=== PATIENT | male | born 1955 | race Caucasian/White ===

== ENCOUNTER 2019-11-17 20:30 | Inpatient (IN) | payer MEDICARE, OTHER ==
[2019-11-17] MEDS ORDERED: Sodium Chloride 0.9% 10 ML Syringe FLUSH PRN (20:32)
[2019-11-17] MEDS ORDERED: Albuterol 0.083% 2.5 MG/3 ML Neb Soln NEB ONE (20:43)
--- NOTE | 2019-11-17 20:43 | EDM.PDOC ---
ED HPI GENERAL MEDICAL PROBLEM - General Chief Complaint: General Stated Complaint: SOB Time Seen by Provider: 11/17/19 20:31 Source of Information: Reports: Patient History Limitations: Reports: No Limitations - History of Present Illness INITIAL COMMENTS - FREE TEXT/NARRATIVE: She comes into the emergency department after receiving a phone call from his primary care provider stating that he had an elevated troponin he was to present to the emergency department for further evaluation. Patient was seen in the clinic earlier today for increasing shortness of breath that has been going on now approximately 5 days. The patient states when it gets humid and hot he ends up having more difficulty breathing. Patient has a longstanding history of PD and use of at home oxygen. He states that he has been more short of breath at rest over the course of the week. He ended up going in the clinic earlier in the week and they provided him a prednisone taper dose and doxycycline. Patient came back into the clinic today for ongoing shortness of breath and needing to use his albuterol inhaler every 4 hours at home. He was given a Solu-Medrol action as well as obtained labs chest x-ray and EKG. EKG and x-ray reported as normal however patient's troponin came back elevated 0.133. Patient denies any recent exposure to COVID-19 or other symptoms. Patient states he is been relatively healthy and has been avoiding crowds for he is a high risk individual. Denies any active chest pain at rest, dizziness, lightheadedness, fever, chills, gastrointestinal concerns, or peripheral edema. His prior to arrival tonight he was at home eating 3 pieces of pizza and did consume 3 beers as the symptoms tonight have not progressed any worse he was evaluated in the clinic earlier today. Also endorses smoking a half a pack of cigarettes day for as long as he can remember. Onset: Gradual Location: Reports: Chest Quality: Reports: Other Severity: Mild Improves with: Reports: None Worsens with: Reports: None Associated Symptoms: Reports: No Other Symptoms - Related Data Allergies Allergy/AdvReac Type Severity Reaction Status Date / Time albuterol [From Combivent] Allergy Difficulty Verified 11/17/19 21:05 Breathing budesonide [From Pulmicort] Allergy Difficulty Verified 11/17/19 21:05 Breathing formoterol [From Symbicort] Allergy Difficulty Verified 11/17/19 21:05 Breathing ipratropium Allergy Difficulty Verified 11/17/19 21:05 Breathing tiotropium Allergy Difficulty Verified 11/17/19 21:05 [From Spiriva with Breathing HandiHaler] Home Meds: Home Meds Albuterol Sulfate 2.5 mg IH Q6H PRN 11/17/19 [History] Albuterol [Proair HFA] 2 puff INH Q4HR PRN 11/17/19 [History] Aspirin 81 mg PO DAILY 11/17/19 [History] Cholecalciferol (Vitamin D3) [Vitamin D3] 1,000 unit PO DAILY 11/17/19 [History] Doxycycline [Doxycycline Hyclate] 100 mg PO BID 11/17/19 [History] Fluticasone Propion/Salmeterol [Fluticasone-Salmeterol 250-50] 1 puff IH Q12H 11/17/19 [History] Fluticasone Propionate [Flonase] 2 spray NASBOTH DAILY 11/17/19 [History] Fluticasone/Salmeterol [Advair 250-50] 1 puff INH BID 11/17/19 [History] Folic Acid/Vit B Complex and C [Super B-Complex Folic-Vit C Tb] 400 mcg PO DAILY 11/17/19 [History] Loratadine [Claritin] 10 mg PO DAILY 11/17/19 [History] Mometasone/Formoterol [Dulera 200 Mcg/5 Mcg Inhaler] 2 puff IH BID 11/17/19 [History] Multivitamin [Multivitamins] 1 each PO DAILY 11/17/19 [History] ED ROS GENERAL - Review of Systems Review Of Systems: Comprehensive ROS is negative, except as noted in HPI. Constitutional: Reports: No Symptoms HEENT: Reports: No Symptoms Respiratory: Reports: Shortness of Breath, Wheezing. Denies: Cough Cardiovascular: Reports: No Symptoms Endocrine: Reports: No Symptoms GI/Abdominal: Reports: No Symptoms : Reports: No Symptoms Musculoskeletal: Reports: No Symptoms Skin: Reports: No Symptoms Neurological: Reports: No Symptoms Psychiatric: Reports: No Symptoms Hematologic/Lymphatic: Reports: No Symptoms ED EXAM, GENERAL - Physical Exam Exam: See Below Exam Limited By: No Limitations General Appearance: Alert, WD/WN, No Apparent Distress Eye Exam: Bilateral Eye: PERRL Head: Atraumatic, Normocephalic Neck: Normal Inspection, Supple, Non-Tender, Full Range of Motion Respiratory/Chest: Respiratory Distress, Decreased Breath Sounds, Wheezing, Retractions Course - Vital Signs Last Recorded V/S: Last Vital Signs Temp 36.6 C 11/17/19 20:35 Pulse 112 H 11/17/19 20:50 Resp 20 11/17/19 20:50 BP 129/79 11/17/19 20:50 Pulse Ox 97 11/17/19 20:50 - Orders/Labs/Meds Orders: Active Orders 24 hr Category Date Time Status Admission Status [Patient Status] [ADT] Routine ADT 11/17/19 21:44 Ordered EKG Documentation Completion [RC] STAT Care 11/17/19 20:31 Active RT Aerosol Therapy [RC] ASDIRECTED Care 11/17/19 20:43 Active Chest 1V Frontal [CR] Stat Exams 11/17/19 20:32 Taken Sodium Chloride 0.9% [Saline Flush] Med 11/17/19 20:32 Active 10 ml FLUSH ASDIRECTED PRN Peripheral IV Insertion Adult [OM.PC] Stat Oth 11/17/19 20:31 Ordered Medication Orders Sodium Chloride (Saline Flush) 10 ml FLUSH ASDIRECTED PRN PRN Reason: Keep Vein Open Labs: Laboratory Tests 11/17/19 11/17/19 Range/Units 20:50 20:50 WBC 8.5 (4.0-10.0) x10^3/uL RBC 5.33 (4.5-6.0) x10^6/uL Hgb 15.8 (14.0-18.0) g/dL Hct 46.2 (40.0-52.0) % MCV 86.7 (78.0-93.0) fL MCH 29.6 (26.0-32.0) pg MCHC 34.2 (32.0-36.0) g/dL RDW Coeff of Allen 13.2 (10.0-15.0) % Plt Count 267 (130-400) x10^3/uL Neut % (Auto) 88.9 H (50.0-80.0) % Lymph % (Auto) 8.5 L (25.0-50.0) % [place] % (Auto) 2.6 (2.0-11.0) % Eos % (Auto) 0.0 (0.0-4.0) % Baso % (Auto) 0.0 L (0.2-1.2) % Sodium 140 (136-145) mmol/L Potassium 3.9 (3.5-5.1) mmol/L Chloride 99 (98-107) mmol/L Carbon Dioxide 26 (21-32) mmol/L Anion Gap 18.9 (10-20) mmol/L BUN 16 (7-18) mg/dL Creatinine 1.0 (0.70-1.30) mg/dL Est Cr Clr Drug Dosing 75.03 mL/min Estimated GFR (MDRD) > 60 Glucose 240 H (74-106) mg/dL Calcium 9.1 (8.5-10.1) mg/dL Corrected Calcium 9.18 (8.5-10.1) mg/dL Total Bilirubin 0.3 (0.2-1.0) mg/dL AST 71 H (15-37) U/L ALT 55 (16-63) U/L Alkaline Phosphatase 82 (46-116) U/L Creatine Kinase 109 (39-308) U/L Troponin I 0.048 (<=0.056) ng/mL NT-Pro-B Natriuret Pep 188 H (<=125) pg/mL Total Protein 7.3 (6.4-8.2) g/dL Albumin 3.9 (3.4-5.0) g/dL Globulin 3.4 Albumin/Globulin Ratio 1.15 Meds: Medications Generic Name Dose Route Start Last Admin Trade Name Freq PRN Reason Stop Dose Admin Sodium Chloride 10 ml 11/17/19 20:32 Saline Flush FLUSH ASDIRECTED PRN Keep Vein Open Discontinued Medications Generic Name Dose Route Start Last Admin Trade Name Freq PRN Reason Stop Dose Admin Albuterol 2.5 mg 11/17/19 20:43 11/17/19 20:57 Proventil Neb Soln NEB 11/17/19 20:44 2.5 mg ONETIME ONE Administration Ceftriaxone Sodium 1 gm 11/17/19 21:44 Rocephin IVPUSH 11/17/19 21:45 ONETIME ONE - Re-Assessments/Exams Free Text/Narrative Re-Assessment/Exam: 11/17/19 21:50 pt states he feels better after the albuterol treatment. But still does get SOB with activity. Departure - Departure Time of Disposition: 21:50 Disposition: Admitted As Inpatient 64 Condition: Fair Clinical Impression: COPD with exacerbation, SOB (shortness of breath) Pneumonia Qualifiers: Pneumonia type: due to unspecified organism Laterality: bilateral Lung location: lower lobe of lung Qualified Code(s): J18.9 - Pneumonia, unspecified organism - Discharge Information *PRESCRIPTION DRUG MONITORING PROGRAM REVIEWED*: Not Applicable *COPY OF PRESCRIPTION DRUG MONITORING REPORT IN PATIENT STEPHANIE: Not Applicable Referrals: Fany Tomas NP [Primary Care Provider] - Forms: ED Department Discharge Sepsis Event Note (ED) - Focused Exam Vital Signs: Vital Signs Temp Pulse Resp BP Pulse Ox 11/17/19 20:50 112 H 20 129/79 97 11/17/19 20:35 36.6 C 128 H 32 H 137/91 H 91 L - My Orders Last 24 Hours: My Active Orders 11/17/19 20:31 EKG Documentation Completion [RC] STAT Peripheral IV Insertion Adult [OM.PC] Stat 11/17/19 20:32 Chest 1V Frontal [CR] Stat Sodium Chloride 0.9% [Saline Flush] 10 ml FLUSH ASDIRECTED PRN 11/17/19 20:43 RT Aerosol Therapy [RC] ASDIRECTED 11/17/19 21:44 Admission Status [Patient Status] [ADT] Routine - Assessment/Plan Last 24 Hours: My Active Orders 11/17/19 20:31 EKG Documentation Completion [RC] STAT Peripheral IV Insertion Adult [OM.PC] Stat 11/17/19 20:32 Chest 1V Frontal [CR] Stat Sodium Chloride 0.9% [Saline Flush] 10 ml FLUSH ASDIRECTED PRN 11/17/19 20:43 RT Aerosol Therapy [RC] ASDIRECTED 11/17/19 21:44 Admission Status [Patient Status] [ADT] Routine Assessment:: 1. pneumonia 2. COPD exacerbation 3. SOB Plan: 1. Labs completed in the ER. Results reviewed with the patient 2. IV initiated in the emergency department 3. Albuterol treatment completed- patient did state did improve his symptoms 4. Chest xray completed in ER. Results reviewed with the patient 5. Covid-19 screening completed 6. EKG was completed in ER. Results reviewed with the patient 7. Rocephin 1gm IV given in the ER 8. Cricket Bitz contacted regarding acute care admit. Patient will be admitted for further medical treatment and management 9. Patient and nursing staff was updated regarding the plan of care 10. Patient and family are agreeable to the above plan of care 11. All questions and concerns were addressed with the patient and family prior to admit
[2019-11-17 21:38] LABS: CHLORIDE,CL 99 mmol/L (98-107); SODIUM,NA 140 mmol/L (136-145)
[2019-11-17 21:39] LABS: ANION GAP 18.9 mmol/L (10-20)
[2019-11-17] MEDS ORDERED: cefTRIAXone 1 GM Vial IVPUSH ONE (21:44)
[2019-11-17] MEDS ORDERED: Ondansetron 4 MG Tab.DIS PO PRN (22:57)
[2019-11-17] MEDS ORDERED: Polyethylene Glycol 3350 Powder 17 GM Packet PO PRN (22:57)
[2019-11-17] MEDS ORDERED: Azithromycin 500 MG in Sodium Chloride 0.9% 250 ML IV SCH (23:00)
[2019-11-17] MEDS ORDERED: Enoxaparin 30 MG/0.3 ML Syringe SUBCUT SCH (23:00)
[2019-11-17] MEDS: Sodium Chloride 0.9% 1,000 ML IV SCH (23:41)
[2019-11-17] MEDS: Albuterol 0.083% 2.5 MG/3 ML Neb Soln NEB SCH (23:50)
[2019-11-18] MEDS: Albuterol 0.083% 2.5 MG/3 ML Neb Soln NEB SCH ×3 (02:57→10:58)
[2019-11-18] MEDS ORDERED: Fluticasone-Salmeterol 113-14 MCG Powder Inhalant INH SCH (07:00)
[2019-11-18] MEDS ORDERED: SALMETEROL INH SCH (07:00)
[2019-11-18] MEDS ORDERED: FLUTICASONE PROPION INH SCH (07:00)
[2019-11-18] MEDS ORDERED: Aspirin 81 MG Tab.EC PO SCH (08:00)
[2019-11-18] MEDS ORDERED: Non-Formulary Medication 1 Each (Fluticasone Propion/Salmeterol 1 PUFF) IH SCH (08:00)
[2019-11-18] MEDS ORDERED: Fluticasone Propionate Nasal Spray 16 GM Bottle NASBOTH SCH (08:00)
[2019-11-18] MEDS ORDERED: Loratadine 10 MG Tab PO SCH (08:00)
[2019-11-18] MEDS ORDERED: methylPREDNISolone Sodium Succinate 40 MG/1 ML SDV IVPUSH SCH (08:00)
[2019-11-18 08:11] LABS: HEMOGLOBIN A1C 5.7 % (<5.7)
--- NOTE | 2019-11-18 08:16 | CR ---
[id number] RAD/RAD Chest Portable EXAM: PORTABLE CHEST INDICATION: Shortness of breath. COMPARISON: September 21, 2011. DISCUSSION: Hyperinflation is consistent with chronic obstructive pulmonary disease. Mild right perihilar and bibasilar infiltrates are suggested. Normal heart size. IMPRESSION: 1. Mild right perihilar and basilar infiltrates are suggested. 2. Chronic obstructive pulmonary disease. Avelino Garg MD 11/18/19 0815 Thank you for allowing us to participate in the care of your patient.
[2019-11-18 08:45] LABS: CHLORIDE,CL 104 mmol/L (98-107); SODIUM,NA 142 mmol/L (136-145)
--- NOTE | 2019-11-18 10:42 | HP ---
CHIEF COMPLAINT: Shortness of breath. HISTORY OF PRESENT ILLNESS: A 64-year-old male patient was seen by me earlier in the clinic at [facility] for worsening shortness of breath. The patient has known COPD. The patient had stated in the clinic that for the past 3 to 4 days, he has been using his nebulizer every 4 hours and also started himself on doxycycline and prednisone. The patient did not feel any relief. Therefore, he presented to the clinic today. While in the clinic, the patient had walking oxygen saturation checked, which did not show any significant hypoxia at that time. The patient had a CBC completed, which did show a white blood cell count of 13.9. The patient was given 125 mg of IM Solu-Medrol while in the clinic and was sent home. Lab results later showed a positive troponin of 0.133, therefore the patient was advised to report to the emergency room at [facility]. While in the emergency room, his troponin did come back negative. However, his chest x-ray did show developing pneumonia of the right lung. The patient was given albuterol in the emergency room. The patient was also given 1 g of IV Rocephin. The patient was therefore diagnosed with community-acquired pneumonia and transferred to the floor for further care. PAST MEDICAL HISTORY: 1. Asthma, chronic obstructive pulmonary disease overlap syndrome. 2. Tobacco dependence. PAST SURGICAL HISTORY: None. FAMILY HISTORY: Unknown. SOCIAL HISTORY: The patient does smoke cigarettes on a daily basis. The patient does not consume any alcohol. The patient denies any illegal drug use. 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 LABORATORY STUDIES: 1. CBC: White blood cell count 8.5, hemoglobin 15.8, hematocrit 46.2, platelet count 267,000. 2. BMP: Sodium 140, potassium 3.9, chloride 99, CO2 of 26, anion gap of 18.9, BUN is 16, creatinine 1.0, GFR is greater than 60, glucose 240, calcium 9.18, total bilirubin 0.8, AST is 71, ALT is 55, alkaline phosphatase 82, protein 7.3. 3. Creatine kinase 109. 4. Troponin 0.048. 5. COVID-19 negative. IMAGING STUDIES: Possible developing pneumonia of the right middle lobe, awaiting Radiology over-read. HOME MEDICATIONS: 1. Wixela Inhub 1 puff every 12 hours daily. 2. Claritin 10 mg 1 tablet p.o. daily. 3. Ventolin HFA 108 mcg 2 puffs every 4 hours as needed. 4. Dulera 200/5 mcg 2 puffs 2 times a day. 5. Flonase 2 sprays each nostril 1 time a day. 6. Singulair 10 mg 1 tablet p.o. daily at bedtime. 7. Albuterol 2.5 mg/3 mL, take 3 mL by nebulizer every 6 hours as needed. 8. Multivitamin 1 tablet p.o. daily. 9. Super B complex 1 tablet p.o. daily. 10.Cholecalciferol 1 tablet p.o. daily. 11.Aspirin 81 mg 1 tablet p.o. daily. ALLERGIES: 1. Pulmicort. 2. Symbicort. 3. Combivent. 4. Ipratropium. 5. Environmental allergies. 6. Spiriva. REVIEW OF SYSTEMS: Constitutional: The patient feels somewhat fatigued, otherwise doing okay. Respiratory: Complains of shortness of breath and a productive cough with some chest tightness. Cardiovascular: Denies any chest pain or palpitations. Abdomen: Negative. Skin: Negative. Neurological: Negative. PHYSICAL EXAMINATION: General Presentation: The patient is alert. The patient is not in any distress. The patient is tachypneic. The patient is cooperative. Respiratory: The patient is tachypneic. The patient has expiratory wheezing throughout all lung storm. Scattered rhonchi throughout the right lung field. Cardiovascular: Regular rate and rhythm. No murmur. Abdomen: Soft, nontender. Bowel sounds are hypoactive x4. Skin: Clean, dry, and intact. Neurological: The patient is alert. The patient is oriented to person, place, and time. No focal neurological deficits. No unilateral weakness. ASSESSMENT: 1. Community-acquired pneumonia due to unknown organism. 2. Acute chronic obstructive pulmonary disease exacerbation. 3. Acute respiratory failure secondary to pneumonia and hypoxia. 4. Tobacco dependence. PLAN: The patient will be admitted to the acute care floor at [facility]. The patient will be started on Rocephin 1 g IV every 24 hours concurrently with azithromycin 500 mg IV every 24 hours. Instruct the patient on incentive spirometry. We will schedule albuterol nebulizers every 4 hours around the clock. We will also start the patient on Solu-Medrol 40 mg IV daily, may consider an increase depending upon how the patient does over the next 24 hours. The patient has already been on prednisone this week, therefore caution is advised with increase in his dose. The patient is a full code. The patient does wish to be transferred to a higher level of care should the need arise. The patient does need to be up for all meals and ambulate as able. Continue his oxygen to keep oxygen saturations greater than 88%, but less than 92%. We will recheck laboratory work tomorrow morning. This patient was seen and examined by me as an [facility] provider. TB: 11/17/2019 23:21:18 MODL: 11/18/2019 01:42:18 /[id number]
[2019-11-18] MEDS: Sodium Chloride 0.9% 1,000 ML IV SCH (10:46)
--- NOTE | 2019-11-18 10:59 | DISCH ---
CHIEF COMPLAINT: Shortness of breath. HISTORY OF PRESENT ILLNESS: The patient had been seen and examined by me at [facility] in the clinic yesterday for COPD exacerbation. The patient was found to have a positive troponin of 0.133. Therefore, he was sent to the emergency Room at [facility]. His evaluation in the emergency department did not show any EKG changes and his troponin was normal, however, the patient was found to have right lobe infiltrates. Therefore, he was admitted for pneumonia. The patient's blood work this morning did show a positive troponin of 0.235 with a normal CK. Therefore, the decision was made to transfer the patient to [facility] for further management and evaluation. DISCHARGE DISPOSITION: To be sent to [facility] from [facility]. BRIEF HOSPITAL COURSE: The patient remained hemodynamically stable while he was on the Acute Care floor. The patient was started on IV Zithromax and Rocephin per protocol. The patient had an elevated white cell count secondary to steroid use. Kidney function was normal. The patient did not have any EKG changes. The patient did not complain of any chest pain or palpitations. CONSULTATIONS: Hospitalist Service at [facility]. DISCHARGE MEDICATIONS: 1. Albuterol 2.5 mL via nebulizer every 4 hours. 2. Aspirin 81 mg 1 tablet p.o. daily. 3. Azithromycin 500 mg IV daily. 4. Rocephin 1 g IV daily. 5. Lovenox 40 mg subcu daily. 6. Flonase 1 squirt to both nares daily. 7. Claritin 10 mg 1 tablet p.o. daily. 8. Solu-Medrol 40 mg IV push daily. 9. Zofran 4 mg p.o. every 6 hours as needed. 10.MiraLAX 17 g p.o. daily as needed. 11.The patient is currently on normal saline IV fluids at 100 mL/h. DISCHARGE LABORATORY WORK: 1. CBC: White blood cell count 16.7, hemoglobin 14.7, hematocrit 43.2, platelets are 230,000. 2. BMP: Sodium 142, potassium 4.0, chloride 104, CO2 is 32, anion gap is 10.0, BUN is 17, creatinine 1.0, GFR is greater than 60, glucose is 110, magnesium 1.9, calcium 8.8. 3. Lactic acid 1.9. 4. Hemoglobin A1c 5.7%. 5. CK 75. 6. Troponin 0.235. ASSESSMENT: 1. Bibasilar pneumonia secondary to unknown organism. 2. Acute chronic obstructive pulmonary disease exacerbation. 3. Acute respiratory failure with hypoxia. 4. Positive troponin. 5. Clinical dehydration. PLAN: The case was discussed with Dr. Dana Tidwell, hospitalist service at [facility] in [place]. The patient was accepted in transfer due to his elevated troponin. Plan of care was discussed with the family who wished to proceed with the transfer. The patient is a code level 1. The patient was discharged in hemodynamically stable condition. The patient was seen and examined by me as an [facility] provider. TB: 11/18/2019 10:13:15 MODL: 11/18/2019 10:37:13 /[id number]
[2019-11-18] MEDS ORDERED: Enoxaparin 40 MG/0.4 ML Syringe SUBCUT SCH (20:00)
[2019-11-18] MEDS ORDERED: cefTRIAXone 1 GM Vial IVPUSH SCH (21:00)
== END 2019-11-18 11:15 | disposition short-term general hospital (02) | DRG 193 ==
LOC: VM.ED 20:30 → VM.MS 21:44
PROVIDERS: ADMIT Nurse Practitioner Family; ATTEND Nurse Practitioner Family
DX: J18.9 Pneumonia, unspecified organism (principal); J96.01 Acute respiratory failure with hypoxia; J44.0 Chronic obstructive pulmonary disease with (acute) lower respiratory infection; J44.1 Chronic obstructive pulmonary disease with (acute) exacerbation; E86.0 Dehydration; Z79.82 Long term (current) use of aspirin; Z79.899 Other long term (current) drug therapy; F17.210 Nicotine dependence, cigarettes, uncomplicated; Z20.828 Contact with and (suspected) exposure to other viral communicable diseases; Z88.8 Allergy status to other drugs, medicaments and biological substances
CPT/HCPCS: 36415; 71045; 80048; 80053; 81003; 82550; 83036; 83605; 83735; 83880; 84484; 85025; 86140; 87040; 93005; 94640; 94760; 96374; 99284; 99285-25; A9270-GY; J0456; J0696; J1650; J2920; J7030; J7050; J7613-GY; U0002

== ENCOUNTER 2019-12-06 09:38 | Emergency (ER) | payer MEDICARE, OTHER ==
[2019-12-06] MEDS ORDERED: Sodium Chloride 0.9% 10 ML Syringe FLUSH PRN (09:50)
[2019-12-06] MEDS ORDERED: Albuterol/Ipratropium 3.0-0.5 MG/3 ML Neb Soln NEB ONE (09:50)
[2019-12-06] MEDS ORDERED: methylPREDNISolone Sodium Succinate 125 MG/2 ML SDV IVPUSH ONE (10:19)
--- NOTE | 2019-12-06 10:19 | EDM.PDOC ---
ED HPI GENERAL MEDICAL PROBLEM - General Stated Complaint: wheezing SOB. Time Seen by Provider: 12/06/19 09:40 Source of Information: Reports: Patient History Limitations: Reports: No Limitations - History of Present Illness INITIAL COMMENTS - FREE TEXT/NARRATIVE: Patient comes emergency department today from cardiac rehab with complaints of wheezing and shortness of breath. Patient just recently had 2 cardiac stents placed approximately November 17. He also had pneumonia during that time. He was on antibiotics and steroids. He had a recheck appointment yesterday at the cardiology appointment and he was quite short of breath and wheezing at that time. They wanted to increase his metoprolol at that time although the refused. Today when he was at [facility] he became more short of breath and had wheezing. He was brought to the emergency department for further evaluation. Patient denies any pain in his chest. He does complain of increased shortness of breath and wheezing. No fever no chills. His cough is at about baseline for prominence as well as productivity. He has no weakness dizziness lightheadedness. No syncope. No fever no chills. No abdominal pain nausea or vomiting. No hematuria dysuria or urinary frequency. No diarrhea. NO COvid exposure no other COVID symptoms. He was on a short course of steroids which is was done with about 2 days after being discharged from the hospital. - Related Data Allergies Allergy/AdvReac Type Severity Reaction Status Date / Time albuterol [From Combivent] Allergy Difficulty Verified 11/30/19 09:24 Breathing budesonide [From Pulmicort] Allergy Difficulty Verified 11/30/19 09:24 Breathing formoterol [From Symbicort] Allergy Difficulty Verified 11/30/19 09:24 Breathing ipratropium Allergy Difficulty Verified 11/30/19 09:24 Breathing tiotropium Allergy Difficulty Verified 11/30/19 09:24 [From Spiriva with Breathing HandiHaler] Home Meds: Home Meds Aspirin 81 mg PO DAILY 11/17/19 [History] Cholecalciferol (Vitamin D3) [Vitamin D3] 1,000 unit PO DAILY 11/17/19 [History] Fluticasone Propion/Salmeterol [Fluticasone-Salmeterol 250-50] 1 puff IH Q12H 11/17/19 [History] Fluticasone Propionate [Flonase] 2 spray NASBOTH DAILY 11/17/19 [History] Fluticasone Propion/Salmeterol [Wixela 250-50 Inhub] 1 each IH BID 11/18/19 [History] Clopidogrel [Plavix] 75 mg PO DAILY 11/30/19 [History] Folic Acid/Vit B Complex and C [Super B Complex Tablet] 1 tab PO DAILY 11/30/19 [History] Metoprolol Succinate [Toprol XL] 25 mg PO DAILY 11/30/19 [History] Mometasone/Formoterol [Dulera 200-5 MCG] 2 puff INH BID 11/30/19 [History] Montelukast [Singulair] 10 mg PO DAILY 11/30/19 [History] Multivitamin [Multivitamins] 1 cap PO DAILY 11/30/19 [History] atorvaSTATin [Lipitor] 40 mg PO DAILY 11/30/19 [History] predniSONE 20 mg PO DAILY #20 tab 12/06/19 [Rx] Past Medical History Respiratory History: Reports: COPD, Other (See Below) Other Respiratory History: chronic cough - Infectious Disease History Infectious Disease History: Reports: Chicken Pox Social & Family History - Family History Cardiac: Reports: Heart Failure, [place] Respiratory: Reports: COPD Oncologic: Reports: Other (See Below) Other Oncologic Family History: Pt. stated mother had hx of cancer. - Caffeine Use Caffeine Use: Reports: Coffee ED ROS GENERAL - Review of Systems Review Of Systems: Comprehensive ROS is negative, except as noted in HPI. ED EXAM, GENERAL - Physical Exam Exam: See Below Free Text/Narrative:: PT is sitting at the bedside position in a tripod position. He is shaky and anxious with audible wheezing and appears in mild to moderate tachypnea. He is only able to speak in 3-4 word sentences before having to stop to take his breath. Exam Limited By: No Limitations General Appearance: Alert, WD/WN, Moderate Distress Eye Exam: Bilateral Eye: EOMI, PERRL Ears: Normal External Exam, Normal TMs Nose: Normal Inspection Throat/Mouth: Normal Inspection Head: Atraumatic Neck: Normal Inspection, Supple Respiratory/Chest: Chest Non-Tender, Respiratory Distress (Mild), Decreased Breath Sounds (Throughout), Wheezing (RUL and LLL without any rhonchi. ), Accessory Muscle Use (Tri-poding and minimal costal retractions. ) Cardiovascular: Normal Peripheral Pulses, Regular Rate, Rhythm Peripheral Pulses: 2+: Radial (L), Radial (R), Posterior Tibial (L), Posterior Tibial (R), Dorsalis Pedis (L), Dorsalis Pedis (R) GI/Abdominal: Normal Bowel Sounds, Soft, Non-Tender, Pelvis Stable (Male) Exam: Deferred Rectal (Males) Exam: Deferred Back Exam: Normal Inspection, Full Range of Motion Extremities: Normal Inspection, Normal Range of Motion, Non-Tender, No Pedal Edema, Normal Capillary Refill Neurological: Alert, Oriented, Normal Cognition, No Motor/Sensory Deficits Psychiatric: Normal Affect, Normal Mood Skin Exam: Warm, Dry, Intact, Normal Color Course - Vital Signs Last Recorded V/S: Last Vital Signs Temp 98.1 F 12/06/19 11:00 Pulse 78 12/06/19 11:00 Resp 20 12/06/19 11:00 BP 168/98 H 12/06/19 11:00 Pulse Ox 96 12/06/19 11:00 - Orders/Labs/Meds Orders: Active Orders 24 hr Category Date Time Status Peripheral IV Insertion Adult [OM.PC] Stat Oth 12/06/19 09:50 Ordered Labs: Laboratory Tests 12/06/19 12/06/19 Range/Units 10:04 10:04 WBC 8.5 (4.0-10.0) x10^3/uL RBC 5.12 (4.5-6.0) x10^6/uL Hgb 15.3 (14.0-18.0) g/dL Hct 44.1 (40.0-52.0) % MCV 86.1 (78.0-93.0) fL MCH 29.9 (26.0-32.0) pg MCHC 34.7 (32.0-36.0) g/dL RDW Coeff of Allen 12.9 (10.0-15.0) % Plt Count 213 (130-400) x10^3/uL Neut % (Auto) 64.6 (50.0-80.0) % Lymph % (Auto) 22.3 L (25.0-50.0) % [place] % (Auto) 9.7 (2.0-11.0) % Eos % (Auto) 3.2 (0.0-4.0) % Baso % (Auto) 0.2 (0.2-1.2) % Sodium 140 (136-145) mmol/L Potassium 4.0 (3.5-5.1) mmol/L Chloride 101 (98-107) mmol/L Carbon Dioxide 29 (21-32) mmol/L Anion Gap 14.0 (10-20) mmol/L BUN 17 (7-18) mg/dL Creatinine 0.9 (0.70-1.30) mg/dL Est Cr Clr Drug Dosing TNP Estimated GFR (MDRD) > 60 Glucose 103 (74-106) mg/dL Calcium 9.5 (8.5-10.1) mg/dL Corrected Calcium 9.58 (8.5-10.1) mg/dL Total Bilirubin 0.5 (0.2-1.0) mg/dL AST 63 H (15-37) U/L ALT 40 (16-63) U/L Alkaline Phosphatase 93 (46-116) U/L Troponin I < 0.017 (<=0.056) ng/mL C-Reactive Protein 0.5 (<=0.9) mg/dL NT-Pro-B Natriuret Pep 205 H (<=125) pg/mL Total Protein 7.3 (6.4-8.2) g/dL Albumin 3.9 (3.4-5.0) g/dL Globulin 3.4 Albumin/Globulin Ratio 1.15 Meds: Medications Discontinued Medications Generic Name Dose Route Start Last Admin Trade Name Freq PRN Reason Stop Dose Admin Albuterol/Ipratropium 3 ml 12/06/19 09:50 12/06/19 10:04 Duoneb 3.0-0.5 Mg/3 Ml NEB 12/06/19 09:51 3 ml ONETIME ONE Administration Methylprednisolone Sodium Succinate 125 mg 12/06/19 10:19 12/06/19 10:38 Solu-Medrol IVPUSH 12/06/19 10:20 125 mg ONETIME ONE Administration Sodium Chloride 10 ml 12/06/19 09:50 Saline Flush FLUSH ASDIRECTED PRN Keep Vein Open - Radiology Interpretation Free Text/Narrative:: Chest x-ray per radiology shows chronic obstructive pulmonary disease with stable potential early right perihilar and medial right base infiltrates. Which when reviewing his CXR from 11/16/18 has a very similar picture. - Re-Assessments/Exams Free Text/Narrative Re-Assessment/Exam: 12/06/19 19:28 Labs drawn DUO-NEB nebulizer with resolution of the tachypnea and he feels back to baseline for his chronic COPD. He still has some expiratory wheezing bilaterally although much improved. Solu-Medrol 125 mg IV push. Laboratory evaluation is rather unremarkable with no elevation of WBC and CRP. CXR really is not much different than previous from the end of october when he was diagnosed with pneumonia and an NSTEMI which he got stents for. I believe this is just a reoccurrence of a COPD exacerbation and no need for anti-biotics without a WBC increased sputum production or fever per the guidelines. He is now laying down in bed relaxed and appears in no acute distress. We will discharge home with a longer course of oral steriods to assist in controlling this flare of COPD. Departure - Departure Time of Disposition: 11:05 Disposition: Home, Self-Care 01 Clinical Impression: COPD with exacerbation - Discharge Information Prescriptions: predniSONE 20 mg PO DAILY #20 tab Instructions: Chronic Obstructive Pulmonary Disease Exacerbation, [id number] Referrals: Fany Tomas INTER[employer] ASSESSOR [Primary Care Provider] - Forms: ED Department Discharge Additional Instructions: Continue your previous therapies at home. Use albuterol in your nebulizer for acute episodes until flare is over instead of the MDI. Prednisone 60mg for 3 days. 40mg for 3 days. 20mg for 3 days and 10mg for 3 days. RX to [facility]. Return to the ED if new or worsening symptoms. Follow up with PCP in the next week if not improving sooner if worse. Need a repeat CXR from 6 weeks from initial diagnosis to ensure resolution of the pneumonia. Sepsis Event Note (ED) - Focused Exam Vital Signs: Vital Signs Temp Pulse Resp BP Pulse Ox 12/06/19 11:00 98.1 F 78 20 168/98 H 96 12/06/19 09:38 98.3 F 88 28 H 171/102 H 95 - My Orders Last 24 Hours: My Active Orders 12/06/19 09:50 Peripheral IV Insertion Adult [OM.PC] Stat - Assessment/Plan Last 24 Hours: My Active Orders 12/06/19 09:50 Peripheral IV Insertion Adult [OM.PC] Stat
[2019-12-06 10:36] LABS: CHLORIDE,CL 101 mmol/L (98-107); SODIUM,NA 140 mmol/L (136-145)
--- NOTE | 2019-12-06 10:42 | CR ---
[id number] RAD/RAD Chest PA And Lateral EXAM: FRONTAL AND LATERAL CHEST INDICATION: Shortness of breath and wheezing. COMPARISON: November 17, 2019. DISCUSSION: Hyperinflation is consistent with chronic obstructive pulmonary disease. Possible early right perihilar and basilar infiltrates superimposed on chronic scarring without appreciable interval change. No left-sided infiltrates are identified. Normal heart size. No effusions. IMPRESSION: 1. Chronic obstructive pulmonary disease with stable potential early right perihilar and medial right base infiltrates. Avelino Garg MD 12/06/19 1041 Thank you for allowing us to participate in the care of your patient.
== END 2019-12-06 11:21 | disposition home or self-care (01) ==
LOC: VM.ED 09:38
DX: J44.1 Chronic obstructive pulmonary disease with (acute) exacerbation (principal); Z88.8 Allergy status to other drugs, medicaments and biological substances; Z79.82 Long term (current) use of aspirin; Z79.02 Long term (current) use of antithrombotics/antiplatelets; Z79.899 Other long term (current) drug therapy
CPT/HCPCS: 71046; 80053; 83880; 84484; 85025; 86140; 93005; 94640; 96374; 99284; 99285-25; J2930; J7620-GY